=== PATIENT | male | born 1980 | race Caucasian/White ===

== ENCOUNTER 2017-09-27 07:10 | Emergency (ER) | payer SELFPAY ==
[2017-09-27] MEDS ORDERED: Ketorolac 60 MG/2 ML SDV IM ONE (07:36)
--- NOTE | 2017-09-27 07:39 | EDM.PDOC ---
ED HPI GENERAL MEDICAL PROBLEM - General Chief Complaint: Lower Extremity Injury/Pain Stated Complaint: RIGHT FOOT PAIN Time Seen by Provider: 09/27/17 07:31 - History of Present Illness INITIAL COMMENTS - FREE TEXT/NARRATIVE: HISTORY AND PHYSICAL: History of present illness: The patient is a 37-year-old male with no stated medical problems who presents with complaints of pain to his right lateral ankle after he rolled it while stepping out of his truck last evening. The patient says he did not injure anything else and has no proximal knee or hip pain and did not hit his head pass out or blackout. He has no head neck or back pain and no other extremity complaints. The patient says he has been icing and elevating it and it is still swollen and his friends told him it might be broken that he should get it checked out. There is pain when he puts weight on it. He has not taken any medications for the pain. He has no history of prior injury to this ankle and he has no neurosensory changes in the foot. Review of systems: As per history of present illness and below otherwise all systems reviewed and negative. Past medical history: As per history of present illness and as reviewed below otherwise noncontributory. Surgical history: As per history of present illness and as reviewed below otherwise noncontributory. Social history: No reported history of drug or alcohol abuse. Family history: As per history of present illness and as reviewed below otherwise noncontributory. Physical exam: General: Well-developed well-nourished male who is nontoxic and cooperative speaks clearly and easily in the ED HEENT: Atraumatic, normocephalic, negative for conjunctival pallor or scleral icterus, mucous membranes moist, throat clear, neck supple, nontender, trachea midline. There are no midline step-offs in his defects of the cervical spine Lungs: Clear to auscultation, breath sounds equal bilaterally, chest nontender. Heart: S1S2, regular rate and rhythm no overt murmurs Abdomen: Soft, nondistended, nontender. NABS Pelvis: Stable nontender. No lateral hip tenderness on the right Genitourinary: Deferred. Rectal: Deferred. Extremities: Atraumatic with full range of motion of all extremities with the exception of the right ankle. At the lateral right apical there is diffuse and extensive soft tissue swelling and tenderness but no palpable bony deformities or crepitus. The medial ankle heel foot and toes are all nontender without defects or deformities. The alignment is intact. Proximally the tib-fib knee thigh and hip are without tenderness or deformities. Neurovascular is intact. The legs are, negative for cords or calf pain. Neurovascular unremarkable. Neuro: Awake, alert, oriented. Cranial nerves II through XII unremarkable. Cerebellum unremarkable. Motor and sensory unremarkable throughout. Exam nonfocal. Diagnostics: X-ray right ankle Therapeutics: Ice pack, Toradol, crutches and cam boot Impression: Right ankle sprain Definitive disposition and diagnosis as appropriate pending reevaluation and review of above. Right Ankle Pain Score (Numeric/FACES): 7 - Related Data Allergies Allergy/AdvReac Type Severity Reaction Status Date / Time No Known Allergies Allergy Verified 09/27/17 07:27 Home Meds: Home Meds Dextroamphetamine/Amphetamine [Adderall 5 mg Tablet] 5 mg PO DAILY 09/27/17 [ History] Past Medical History Psychiatric History: Reports: Other (See Below) Other Psychiatric History: pt states he takes adderall to stay awake Social & Family History - Family History Family Medical History: Noncontributory - Tobacco Use Smoking Status *Q: Never Smoker Years of Tobacco use: 20 Packs/Tins Daily: 1 - Caffeine Use Caffeine Use: Reports: Coffee - Recreational Drug Use Recreational Drug Use: No Review of Systems - Review of Systems Review Of Systems: ROS reveals no pertinent complaints other than HPI. ED EXAM, GENERAL - Physical Exam Exam: See Below (See dictation) Course - Vital Signs Last Recorded V/S: Last Vital Signs Temp 36.6 C 09/27/17 07:24 Pulse 94 09/27/17 07:24 Resp 18 09/27/17 07:24 BP 147/108 H 09/27/17 07:24 Pulse Ox 95 09/27/17 07:24 - Orders/Labs/Meds Orders: Active Orders 24 hr Category Date Time Status Ankle Min 3V Rt [CR] Stat Exams 09/27/17 07:36 Taken DME for Discharge [COMM] Stat Oth 09/27/17 08:21 Ordered Meds: Medications Discontinued Medications Generic Name Dose Route Start Last Admin Trade Name Freq PRN Reason Stop Dose Admin Ketorolac Tromethamine 60 mg 09/27/17 07:36 09/27/17 07:45 Toradol IM 09/27/17 07:37 60 mg ONETIME ONE Administration Departure - Departure Time of Disposition: 08:34 Disposition: Home, Self-Care 01 Condition: Good Clinical Impression: Right ankle sprain Qualifiers: Encounter type: initial encounter Involved ligament of ankle: unspecified ligament Qualified Code(s): S93.401A - Sprain of unspecified ligament of right ankle, initial encounter - Discharge Information Referrals: PCP,None [Primary Care Provider] - Forms: ED Department Discharge Additional Instructions: The following information is given to patients seen in the emergency department who are being discharged to home. This information is to outline your options for follow-up care. We provide all patients seen in our emergency department with a follow-up referral. The need for follow-up, as well as the timing and circumstances, are variable depending upon the specifics of your emergency department visit. If you don't have a primary care physician on staff, we will provide you with a referral. We always advise you to contact your personal physician following an emergency department visit to inform them of the circumstance of the visit and for follow-up with them and/or the need for any referrals to a consulting specialist. The emergency department will also refer you to a specialist when appropriate. This referral assures that you have the opportunity for followup care with a specialist. All of these measure are taken in an effort to provide you with optimal care, which includes your followup. Under all circumstances we always encourage you to contact your private physician who remains a resource for coordinating your care. When calling for followup care, please make the office aware that this follow-up is from your recent emergency room visit. If for any reason you are refused follow-up, please contact the [facility] emergency department at and ask to speak to the emergency department charge nurse. [facility]--Orthopedic clinic Professional Building [address] [place] [id number] Continue to ice and elevate the area. Please call and follow-up in our orthopedics clinic next week using resources given to above. Use over-the- counter Motrin or Aleve for pain and inflammation and use the stronger pain medications you have been prescribed, [place], as needed but only take when you' re at home. Wear the cam boot you have been given at all times and loosen or remove at sleep times. Use crutches at all times and do not weight-bear. Touch weight-bear only when necessary. Return to ER as needed and as discussed - My Orders Last 24 Hours: My Active Orders 09/27/17 07:36 Ankle Min 3V Rt [CR] Stat 09/27/17 08:21 DME for Discharge [COMM] Stat - Assessment/Plan Last 24 Hours: My Active Orders 09/27/17 07:36 Ankle Min 3V Rt [CR] Stat 09/27/17 08:21 DME for Discharge [COMM] Stat
--- NOTE | 2017-09-27 10:20 | CR ---
EXAM DATE: 09/27/17 PATIENT'S AGE: 37 Patient: LAN AVILA Facility: [place], [place] Site . Site : [id number] Study: XRay Extremity Right Ankle. [id number]/31/2018 8:01:20 AM Ordering Physician: Mary Nash Final Report: INDICATION: Pain FINDINGS: Three views of the right ankle show no evidence of acute fracture or dislocation. Soft tissue swelling over the lateral malleolus. No other bony or soft tissue abnormalities identified. Dictated by Harish Lyn MD @ 09/27/2017 8:28:57 AM Dictated by: Harish Lyn MD @ 09/27/2017 08:29:12 (Electronic Signature) Report Signed by Proxy. [facility]
== END 2017-09-27 08:50 | disposition home or self-care (01) ==
LOC: MW.ED 07:10
DX: S93.401A Sprain of unspecified ligament of right ankle, initial encounter (principal); X50.9XXA Other and unspecified overexertion or strenuous movements or postures, initial encounter
CPT/HCPCS: 73610; 96372; 99283; J1885